=== PATIENT | female | born 1935 | race Hispanic/Latino ===

== ENCOUNTER 2020-01-30 17:25 | Inpatient (IN) | payer MEDICARE ==
[~2020-01-30] VITALS: Ht 144.8 cm; Wt 53.2 kg
[~2020-01-30 17:25] MED LIST: ALEN70TA10 PO; ALPR0.255 PO; AMOX-426 PO; ASPI-555 PO; ATOR20TA65 PO; CALC-909 PO; CHOL200074 PO; DICL2100G TP; DONE5TAB26 PO; LEVO25TA54 PO; METF-444 PO; PARO-37 PO; PREG75 GT; TYL3 PO; [UNRECOGNIZED DRUG - OTHER] PO
[2020-01-30] MEDS ORDERED: ONDANSETRON HCL 4 MG/2 ML VIAL ONE (19:22)
[2020-01-30] MEDS ORDERED: MORPHINE SULFATE 2 MG/ML 1ML SYG ONE (19:23)
[2020-01-30 19:38] LABS: BASOPHILS % (AUTO) 0.5 % (0.0-5.0); EOSINOPHILS % (AUTO) 0.7 % (0.0-8.0); HEMATOCRIT 29.8 % (36-48); LYMPHOCYTES % (AUTO) 15.1 % (21.0-51.0); MEAN CORPUSCULAR HGB CONC 32.2 g/dL (32.0-36.0); NEUTROPHILS % (AUTO) 78.3 % (40.0-77.0); PLATELET COUNT (AUTO) 140 K/uL (130-400); RED BLOOD CELL COUNT(AUTO) 3.31 MIL/uL (4.00-5.50); RED CELL DISTRIBUTION WIDTH 14.2 % (11.0-15.5)
[2020-01-30 19:50] LABS: CREATININE 1.3 mg/dL (0.5-1.5); INR 1.13 (0.85-1.15); PARTIAL THROMBOPLASTIN TIME 26.8 SEC (26.3-35.5); POTASSIUM 5.2 mmol/L (3.5-5.1); PROTHROMBIN TIME 11.8 SEC (9.6-11.6)
[2020-01-30 19:52] LABS: ALBUMIN 3.6 g/dL (3.5-5.0); BILIRUBIN,TOTAL 0.4 mg/dL (0.2-1.0); TOTAL PROTEIN, SERUM 6.8 g/dL (6.0-8.3)
[2020-01-30] MEDS ORDERED: MORPHINE SULFATE 4 MG/1ML SYG ONE (21:54)
[2020-01-30] MEDS: DEXTROSE 5 % AND 0.9 % NACL 1,000 ML IV SCH (23:15)
[2020-01-30] MEDS ORDERED: ONDANSETRON HCL 4 MG/2 ML VIAL IV PRN (23:15)
[2020-01-30] MEDS: CEFAZOLIN SODIUM 1 GM VIAL IVP SCH (23:15)
[2020-01-30] MEDS ORDERED: GLUCAGON 1MG KIT 1 MG ML IM PRN (23:45)
[2020-01-30] MEDS ORDERED: DEXTROSE 50%-WATER 50 ML DISP.SYRIN IV PRN (23:45)
[2020-01-31 00:12] LABS: HEMOGLOBIN A1C 5.8 % (4.0-6.0)
[2020-01-31] MEDS ORDERED: CEFAZOLIN SODIUM 1 GM VIAL ONE (00:13)
[2020-01-31] MEDS ORDERED: DEXTROSE 5 % AND 0.9 % NACL 1,000 ML IV ONE (00:13)
[2020-01-31 02:40] VITALS: BP 108/50
--- NOTE | 2020-01-31 02:43 | NUR ---
ADMISSION PT ADMITTED FROM ER INTO ROOM 418. AWAKE, ALERT AND VERBALLY RESPONSIVE. C/O DISCOMFORT TO RIGHT UPPER AND LOWER EXTREMITY, SLING WITH SPLINT TO RIGHT UPPER EXTREMITY. PT AND FAMILY MEMBER AT BEDSIDE ORIENTED TO ROOM, CALL ELLIOTT WITHIN REACH, BED IN LOWEST POSITION. Addendum: 01/31/20 at 0248 by JOSEE MANCILLA RN Amended: Links added.
[2020-01-31] MEDS ORDERED: LISI10TA7 PO (03:51)
[2020-01-31] MEDS ORDERED: NITR0.4T50 SL (03:51)
[2020-01-31] MEDS ORDERED: MEMA10TA55 PO (03:51)
[2020-01-31] MEDS ORDERED: METF-444 PO (03:51)
[2020-01-31] MEDS ORDERED: METO25TA6 PO (03:51)
[2020-01-31] MEDS: INSULIN HUMULIN R 100 UNIT/ML 3ML SQ SCH ×4 (05:37→23:46)
[2020-01-31 05:58] LABS: ALBUMIN 3.1 g/dL (3.5-5.0); BILIRUBIN,TOTAL 0.3 mg/dL (0.2-1.0); CREATININE 1.8 mg/dL (0.5-1.5); POTASSIUM 5.3 mmol/L (3.5-5.1); TOTAL PROTEIN, SERUM 5.8 g/dL (6.0-8.3)
[2020-01-31 06:29] LABS: BASOPHILS % (AUTO) 0.3 % (0.0-5.0); EOSINOPHILS % (AUTO) 0.4 % (0.0-8.0); HEMATOCRIT 23.2 % (36-48); LYMPHOCYTES % (AUTO) 26.2 % (21.0-51.0); MEAN CORPUSCULAR HEMOGLOBIN 28.6 pg (27.0-33.0); MEAN CORPUSCULAR HGB CONC 31.5 g/dL (32.0-36.0); MONOCYTES % (AUTO) 8.1 % (3.0-13.0); NEUTROPHILS % (AUTO) 64.6 % (40.0-77.0); PLATELET COUNT (AUTO) 106 K/uL (130-400); RED BLOOD CELL COUNT(AUTO) 2.55 MIL/uL (4.00-5.50); RED CELL DISTRIBUTION WIDTH 14.5 % (11.0-15.5); WHITE BLOOD COUNT (AUTO) 7.3 K/uL (4.8-10.8)
[2020-01-31 07:05] LABS: APPEARANCE,URINE Cloudy (CLEAR); BILIRUBIN,URINE Small (NEGATIVE); COLOR,URINE Dark Yellow (YELLOW); GLUCOSE, URINE (UA) Negative (NEGATIVE); KETONES,URINE Trace mg/dL (NEGATIVE); LEUKOCYTE ESTERASE ,URINE Trace (NEGATIVE); NITRATE,URINE Negative (NEGATIVE); OCCULT BLOOD,URINE Negative (NEGATIVE); PH,URINE 5.5 (5.0-8.0); PROTEIN,URINE Trace mg/dL (NEGATIVE)
--- NOTE | 2020-01-31 07:37 | NUR ---
ROUNDING DR. ARMENTA IN PT ROOM. ASSESSED PT AND PT CHART, UPDATED PT AND FAMILY MEMBERS AT BEDSIDE OF PLAN OF CARE, ALL OF FAMILY QUESTIONS WERE ANSWERED. STATED PT NEEDS SURGICAL INTERVENTION TO RIGHT UPPER EXTREMITY BUT NEEDS MEDICAL CLEARANCE FIRST. ONCE MEDICAL CLEARANCE IS OBTAINED PLEASE INFORM DR. ARMENTA AND WILL GIVE ORDERS FOR SURGERY. Addendum: 01/31/20 at 0741 by JOSEE MANCILLA RN Amended: Links added.
[2020-01-31 08:00] VITALS: BP 122/36
--- NOTE | 2020-01-31 08:15 | NUR ---
Notified Buddy Pierce NP of lab levels. Buddy Pierce to order repeat CBC for today to verify levels.
[2020-01-31 08:20] LABS: BACTERIA,URINE Rare /HPF (None Seen); MUCUS,URINE Rare LPF (None Seen); RBC,URINE 0-1 /HPF (0-1); SQUAMOUS EPITHELIAL CELL,UR Rare /HPF (0-2); WBC,URINE 0-1 /HPF (0-1)
[2020-01-31 08:56] LABS: BASOPHILS % (AUTO) 0.7 % (0.0-5.0); EOSINOPHILS % (AUTO) 0.8 % (0.0-8.0); HEMATOCRIT 23.2 % (36-48); LYMPHOCYTES % (AUTO) 31.1 % (21.0-51.0); MEAN CORPUSCULAR HEMOGLOBIN 28.2 pg (27.0-33.0); MEAN CORPUSCULAR HGB CONC 30.6 g/dL (32.0-36.0); MEAN CORPUSCULAR VOLUME 92.1 fL (79-99); MONOCYTES % (AUTO) 7.8 % (3.0-13.0); NEUTROPHILS % (AUTO) 59.3 % (40.0-77.0); PLATELET COUNT (AUTO) 116 K/uL (130-400); RED BLOOD CELL COUNT(AUTO) 2.52 MIL/uL (4.00-5.50); RED CELL DISTRIBUTION WIDTH 14.5 % (11.0-15.5); WHITE BLOOD COUNT (AUTO) 7.1 K/uL (4.8-10.8)
[2020-01-31 09:08] LABS: CREATININE 1.6 mg/dL (0.5-1.5); POTASSIUM 5.4 mmol/L (3.5-5.1)
[2020-01-31] MEDS: FAMOTIDINE/PF 20 MG/2 ML VIAL IV SCH ×2 (09:45→20:21)
--- NOTE | 2020-01-31 10:40 | NUR ---
Nutrition Intervention: Nutrition consult due to trigger. Pt. admitted with Dx of Right Humerus/Femoral fracture. 75gm CCD Clear Liquid diet ordered to begin at lunch time. Pt. NPO during visit. Pt. in the bathroom during visit- spoke with pt's daughter. Daughter reports pt. needs soft/chopped foods when diet advanced. Labs reviewed(Alb 3.1, BG 146, BUN 27, Creat 1.6, GFR 33). Spoke with daughter regarding supplementation with Glucerna when diet advanced and daughter agreed to let pt. try. LBM: 01/30/2020. SR-14, elastic. Pt. with non-pitting edema to RUE. Recommendations: 1) When medically feasible, rec. advance diet as tolerated to 60gm CCD [facility] Soft Finely Chopped diet and [place] Glucerna QD with B'fast meal. 2) Continue to monitor pt's nutritional status and diet advancement. 3) Consult RD as nutrition concerns arise. Addendum: 01/31/20 at [address] Amended: Links added.
[2020-01-31] MEDS: CEFAZOLIN SODIUM 1 GM VIAL IVP SCH ×2 (11:20→23:46)
[2020-01-31 11:36] VITALS: BP 116/50
[2020-01-31] MEDS ORDERED: SODIUM POLYSTYRENE SULFONATE 15 GM/60 ML ML PO SCH (11:45)
[2020-01-31] MEDS ORDERED: SODIUM CHLORIDE 0.9% 250 ML IV ONE (14:38)
[2020-01-31] MEDS: METOPROLOL TARTRATE 25 MG TAB PO SCH (14:53)
--- NOTE | 2020-01-31 15:18 | NUR ---
Patient and family educated on transfusion reactions and to report any symptoms during transfusion. Patient and family verbalized understanding. Unit of PRBC verified with Bibi Yee RN. Transfusion began.
[2020-01-31 16:00] VITALS: BP 120/50
--- NOTE | 2020-01-31 16:30 | NUR ---
CM NOTES MET WITH PATIENT AND GRANDPAULINO SNYDER AT BEDSIDE FOR DISCHARGE PLANNING. PT IS PLEASANTLY CONFUSED BUT ANSWERS MOST QUESTIONS COHERENTLY. LIVES ALONE, GRANDSON AND DAUGHTER ELGIN PRIMARY CAREGIVER LIVE NEXT DOOR. PT STATES IS INDEPENDENT AND AMBULATORY WITHOUT ASSISTANCE, BUT GRANDSON STATES PATIENT HAS CANE AND ROLLING WALKER AND DOES USE MOST OF THE TIME , STATES SHE IS UNSTEADY WITH MOBILITY ASSISTANCE- S/P FALL WITH LEG PAIN AND SHOULDER INJURY. PROVIDER 4 HRS DAILY, HOME SAFE AND ACCESSIBLE; ADVISED GRANDSON THAT A SNF MIGHT BE RECOMMENDED AFTER PT EVAL- WILL FOLLOW UP FOR POSSIBLE REFERRAL. Addendum: 02/01/20 at 1242 by MARI POSADA RN CM Amended: Links added.
[2020-01-31] MEDS: MORPHINE SULFATE 2 MG/ML 1ML SYG IVP PRN ×2 (16:31→23:57)
[2020-01-31] MEDS ORDERED: SODIUM POLYSTYRENE SULFONATE 15 GM/60 ML ML ONE ×2 (17:21→17:24)
[2020-01-31 19:00] VITALS: BP 96/44
--- NOTE | 2020-01-31 19:38 | NUR ---
Notified Dr. Gutierrez of cardiac and medical clearance as reported by Buddy Miramontes NP for Dr. Alfaro and Buddy Pierce NP for hospitalist group. Notified Dr. Gutierrez of pending PRBC transfusion for hgb 7.1 and kayexalate for K+ of 5.4 with patient's family report of history of occasional anemia and hyperkalemia.
[2020-01-31 19:47] LABS: HEMATOCRIT 25.8 % (36-48)
[2020-01-31 19:52] LABS: CREATININE 1.5 mg/dL (0.5-1.5); POTASSIUM 5.2 mmol/L (3.5-5.1)
[2020-01-31] MEDS: DEXTROSE 5 % AND 0.9 % NACL 1,000 ML IV SCH (20:21)
[2020-02-01] VITALS (26 sets, daily range): BP systolic 111–155; BP diastolic 37–94
[2020-02-01] MEDS: INSULIN HUMULIN R 100 UNIT/ML 3ML SQ SCH ×4 (05:08→23:37)
[2020-02-01 05:52] LABS: BASOPHILS % (AUTO) 0.3 % (0.0-5.0); EOSINOPHILS % (AUTO) 0.7 % (0.0-8.0); HEMATOCRIT 23.7 % (36-48); LYMPHOCYTES % (AUTO) 26.1 % (21.0-51.0); MEAN CORPUSCULAR HEMOGLOBIN 27.8 pg (27.0-33.0); MEAN CORPUSCULAR HGB CONC 31.2 g/dL (32.0-36.0); MEAN CORPUSCULAR VOLUME 89.1 fL (79-99); MONOCYTES % (AUTO) 8.3 % (3.0-13.0); NEUTROPHILS % (AUTO) 64.2 % (40.0-77.0); PLATELET COUNT (AUTO) 82 K/uL (130-400); RED BLOOD CELL COUNT(AUTO) 2.66 MIL/uL (4.00-5.50); RED CELL DISTRIBUTION WIDTH 15.6 % (11.0-15.5)
[2020-02-01 06:17] LABS: ALBUMIN 2.8 g/dL (3.5-5.0); BILIRUBIN,TOTAL 0.5 mg/dL (0.2-1.0); CREATININE 1.3 mg/dL (0.5-1.5); TOTAL PROTEIN, SERUM 5.4 g/dL (6.0-8.3)
[2020-02-01] MEDS: FAMOTIDINE/PF 20 MG/2 ML VIAL IV SCH ×2 (10:00→22:05)
[2020-02-01] MEDS: METOPROLOL TARTRATE 25 MG TAB PO SCH (10:01)
[2020-02-01] MEDS ORDERED: SODIUM CHLORIDE 0.9% 1000ML 1,000 ML IV ONE (10:42)
[2020-02-01] MEDS ORDERED: NITROGLYCERIN 0.4 MG SL TAB SL PRN (10:45)
[2020-02-01] MEDS: CEFAZOLIN SODIUM 1 GM VIAL IVP SCH ×3 (10:50→22:05)
[2020-02-01] MEDS ORDERED: ROPIVACAINE 0.5% 5MG/ML 30ML IJ ONE (11:15)
[2020-02-01] MEDS ORDERED: SUCCINYLCHOLINE 200MG/10ML SYR ONE (11:17)
[2020-02-01] MEDS ORDERED: LIDOCAINE PF 2% 5ML ABBOJECT ONE (11:17)
[2020-02-01] MEDS ORDERED: GLYCOPYRROLATE 1 MG/5 ML SYRINGE ONE (11:19)
[2020-02-01] MEDS ORDERED: DEXAMETHASONE SOD PHOSPHATE 10MG/ML 1ML VIAL ONE (11:19)
[2020-02-01] MEDS ORDERED: MIDAZOLAM HCL 1 MG/ML 2ML VIAL ONE (11:19)
[2020-02-01] MEDS ORDERED: ROCURONIUM 10MG/1ML SYR 10 MG/ML ML ONE (11:19)
[2020-02-01] MEDS ORDERED: NEOSTIGMINE 5MG/5ML SYR IV ONE (11:19)
[2020-02-01] MEDS ORDERED: ONDANSETRON HCL 4 MG/2 ML VIAL ONE (11:19)
[2020-02-01] MEDS ORDERED: PROPOFOL 10 MG/ML 20ML VIAL IV ONE (11:19)
[2020-02-01] MEDS ORDERED: FENTANYL CITRATE PF 50 MCG/1 ML 2ML VIAL ONE (11:20)
[2020-02-01] MEDS ORDERED: EPHEDRINE SULFATE 50 MG/ML AMPULE ONE (11:41)
[2020-02-01] MEDS: LISINOPRIL 10 MG TABLET PO SCH (12:00)
[2020-02-01] MEDS ORDERED: PHENYLEPHRINE HCL 10 MG/ML 1ML VIAL IV ONE (13:31)
[2020-02-01 14:13] LABS: HEMATOCRIT 21.5 % (36-48)
--- NOTE | 2020-02-01 14:42 | NUR ---
SPOKE TO DAUGHTER ELGIN ALBRECHT DC PLAN- STATED THAT THEIR PREFERENCE IS FOR PT TO GO HOME AND HAVE MORE FAMILY SURVEILLANCE/CARE. OPEN TO DISCUSSION OF POSS SNF PLACEMENT AFTER PT RECOMMENDATION IN AM - IF PTX STATES IS PREFERABLE WILL FOLLOW. Addendum: 02/01/20 at 1445 by MARI POSADA RN CM Amended: Links added.
[2020-02-01] MEDS: DEXTROSE 5 % AND 0.9 % NACL 1,000 ML IV SCH (15:15)
[2020-02-01 17:47] LABS: HEMATOCRIT 27.9 % (36-48)
[2020-02-01] MEDS: MORPHINE SULFATE 2 MG/ML 1ML SYG IVP PRN (22:03)
[2020-02-01] MEDS: PREGABALIN 75 MG CAPSULE GT SCH (22:05)
[2020-02-01] MEDS: ATORVASTATIN CALCIUM 20 MG TABLET PO SCH (22:05)
[2020-02-01] MEDS: MEMANTINE HCL 5 MG TABLET PO SCH (22:05)
[2020-02-01] MEDS: DONEPEZIL HCL 5 MG TAB PO SCH (22:05)
[2020-02-02] MEDS: DEXTROSE 5 % AND 0.9 % NACL 1,000 ML IV SCH (02:37)
[2020-02-02 03:25] VITALS: BP 143/56
[2020-02-02] MEDS: INSULIN HUMULIN R 100 UNIT/ML 3ML SQ SCH ×4 (06:04→21:36)
[2020-02-02] MEDS: LEVOTHYROXINE 25 MCG TABLET PO SCH (06:06)
[2020-02-02] MEDS ORDERED: CEFAZOLIN SODIUM 1 GM VIAL ONE (06:10)
[2020-02-02 06:43] LABS: MEAN CORPUSCULAR HEMOGLOBIN 28.4 pg (27.0-33.0); MEAN CORPUSCULAR HGB CONC 32.1 g/dL (32.0-36.0); MEAN CORPUSCULAR VOLUME 88.6 fL (79-99); PLATELET COUNT (AUTO) 75 K/uL (130-400); RED BLOOD CELL COUNT(AUTO) 2.71 MIL/uL (4.00-5.50); RED CELL DISTRIBUTION WIDTH 14.8 % (11.0-15.5); WHITE BLOOD COUNT (AUTO) 7.9 K/uL (4.8-10.8)
[2020-02-02 07:04] LABS: ALBUMIN 2.4 g/dL (3.5-5.0); BILIRUBIN,TOTAL 0.4 mg/dL (0.2-1.0); POTASSIUM 3.8 mmol/L (3.5-5.1); TOTAL PROTEIN, SERUM 5.1 g/dL (6.0-8.3)
[2020-02-02 08:19] VITALS: BP 130/48
[2020-02-02 08:48] LABS: BAND NEUTROPHILS % (MANUAL) 2 % (0-2); LYMPHOCYTES % (MANUAL) 11 % (22-44); SEGMENTED NEUTROPHILS % 87 % (40-70)
[2020-02-02 08:49] LABS: PLATELET MORPHOLOGY COMMENT DECREASED
[2020-02-02] MEDS ORDERED: METOPROLOL TARTRATE 25 MG TAB PO SCH (09:00)
[2020-02-02] MEDS: MEMANTINE HCL 5 MG TABLET PO SCH ×2 (10:03→21:25)
[2020-02-02] MEDS: FAMOTIDINE/PF 20 MG/2 ML VIAL IV SCH (10:03)
[2020-02-02] MEDS: PREGABALIN 75 MG CAPSULE GT SCH ×2 (10:04→21:26)
[2020-02-02] MEDS: METOPROLOL TARTRATE 25 MG TAB PO SCH (10:04)
[2020-02-02] MEDS: PAROXETINE HCL 20 MG TABLET PO SCH (10:04)
[2020-02-02] MEDS: CALCIUM 600 + VITAMIN D 400 TABLET PO SCH (10:04)
[2020-02-02] MEDS: ACETAMINOPHEN-CODEINE 300/30MG TAB PO PRN (10:13)
--- NOTE | 2020-02-02 11:02 | NUR ---
Nutrition Follow-up: Pt. s/P ORIF right proximal humerus(02/01/2020). Pt. on Heart Healthy diet with good p.o. this morning, as per daughter. Daughter states pt. needs softer/chopped foods. Labs reviewed(Alb 2.4, BG 198). LBM: 01/31/2020. Recommendations: 1) Rec. 60gm CCD Heart Healthy [facility] Soft Finely Chopped diet. 2) Alb 2.4, rec. [place] Glucerna QD with lunch meal. 3) Continue to monitor pt's nutritional status. 4) Consult RD as nutrition concerns arise. Addendum: 02/02/20 at [address] Amended: Links added.
[2020-02-02 11:25] VITALS: BP 136/48
[2020-02-02] MEDS: LISINOPRIL 10 MG TABLET PO SCH (11:55)
[2020-02-02] MEDS ORDERED: FERROUS SULFATE 325 MG TABLET.DR PO SCH (15:00)
[2020-02-02 16:35] VITALS: BP 129/47
[2020-02-02 18:14] VITALS: BP 149/61
[2020-02-02] MEDS: ATORVASTATIN CALCIUM 20 MG TABLET PO SCH (21:25)
[2020-02-02] MEDS: DONEPEZIL HCL 5 MG TAB PO SCH (21:25)
[2020-02-02] MEDS: FERROUS SULFATE 325 MG TABLET.DR PO SCH (21:25)
[2020-02-03] VITALS (7 sets, daily range): BP systolic 131–156; BP diastolic 50–69
[2020-02-03 05:31] LABS: BASOPHILS % (AUTO) 0.3 % (0.0-5.0); EOSINOPHILS % (AUTO) 0.4 % (0.0-8.0); HEMATOCRIT 21.7 % (36-48); LYMPHOCYTES % (AUTO) 16.3 % (21.0-51.0); MEAN CORPUSCULAR HEMOGLOBIN 28.6 pg (27.0-33.0); MEAN CORPUSCULAR HGB CONC 32.7 g/dL (32.0-36.0); MEAN CORPUSCULAR VOLUME 87.5 fL (79-99); MONOCYTES % (AUTO) 8.4 % (3.0-13.0); NEUTROPHILS % (AUTO) 73.4 % (40.0-77.0); PLATELET COUNT (AUTO) 82 K/uL (130-400); RED BLOOD CELL COUNT(AUTO) 2.48 MIL/uL (4.00-5.50); RED CELL DISTRIBUTION WIDTH 14.6 % (11.0-15.5); WHITE BLOOD COUNT (AUTO) 7.7 K/uL (4.8-10.8)
[2020-02-03 05:39] LABS: % IRON SATURATION 4.6 % (22-44)
[2020-02-03 05:55] LABS: ALBUMIN 2.3 g/dL (3.5-5.0); BILIRUBIN,TOTAL 0.6 mg/dL (0.2-1.0); POTASSIUM 3.5 mmol/L (3.5-5.1); TOTAL PROTEIN, SERUM 5.3 g/dL (6.0-8.3)
[2020-02-03] MEDS: INSULIN HUMULIN R 100 UNIT/ML 3ML SQ SCH ×4 (06:20→20:29)
[2020-02-03] MEDS: LEVOTHYROXINE 25 MCG TABLET PO SCH (06:23)
[2020-02-03] MEDS: PREGABALIN 75 MG CAPSULE GT SCH ×2 (09:54→19:50)
[2020-02-03] MEDS: CALCIUM 600 + VITAMIN D 400 TABLET PO SCH (09:54)
[2020-02-03] MEDS: FERROUS SULFATE 325 MG TABLET.DR PO SCH ×2 (09:55→19:51)
[2020-02-03] MEDS: METOPROLOL TARTRATE 25 MG TAB PO SCH (09:55)
[2020-02-03] MEDS: MEMANTINE HCL 5 MG TABLET PO SCH ×2 (09:55→19:51)
[2020-02-03] MEDS: PAROXETINE HCL 20 MG TABLET PO SCH (09:55)
[2020-02-03] MEDS ORDERED: IRON SUCROSE COMPLEX 100 MG in SODIUM CHLORIDE 0.9% 50 ML IV SCH (11:00)
[2020-02-03] MEDS ORDERED: POTASSIUM CHLORIDE 10% ELIXIR 20 MEQ/15 ML UDCUP PO PRN (11:00)
[2020-02-03] MEDS ORDERED: LIDOCAINE HCL-MPF 1% 2ML VIAL IV PRN (11:00)
[2020-02-03] MEDS ORDERED: POTASSIUM CHLORIDE 20MEQ/100ML 100 ML IV PRN (11:00)
[2020-02-03] MEDS ORDERED: COMPOUND IV MISC 1 EACH IVSOLN MISC PRN (11:15)
[2020-02-03] MEDS: LISINOPRIL 10 MG TABLET PO SCH (11:49)
[2020-02-03] MEDS: DONEPEZIL HCL 5 MG TAB PO SCH (19:51)
[2020-02-03] MEDS: ATORVASTATIN CALCIUM 20 MG TABLET PO SCH (19:51)
[2020-02-03] MEDS: POTASSIUM CHLORIDE 20 MEQ ERTAB PO PRN ×2 (19:52→23:30)
[2020-02-03] MEDS: ACETAMINOPHEN-CODEINE 300/30MG TAB PO PRN (23:32)
[2020-02-04 04:14] VITALS: BP 113/47
[2020-02-04] MEDS: LEVOTHYROXINE 25 MCG TABLET PO SCH (05:27)
[2020-02-04] MEDS: INSULIN HUMULIN R 100 UNIT/ML 3ML SQ SCH ×2 (05:29→12:01)
[2020-02-04 05:58] LABS: BASOPHILS % (AUTO) 0.3 % (0.0-5.0); EOSINOPHILS % (AUTO) 2.3 % (0.0-8.0); HEMATOCRIT 22.7 % (36-48); LYMPHOCYTES % (AUTO) 26.1 % (21.0-51.0); MEAN CORPUSCULAR HEMOGLOBIN 28.8 pg (27.0-33.0); MEAN CORPUSCULAR HGB CONC 31.7 g/dL (32.0-36.0); MEAN CORPUSCULAR VOLUME 90.8 fL (79-99); MONOCYTES % (AUTO) 7.5 % (3.0-13.0); NEUTROPHILS % (AUTO) 63.1 % (40.0-77.0); PLATELET COUNT (AUTO) 102 K/uL (130-400); RED CELL DISTRIBUTION WIDTH 14.9 % (11.0-15.5)
[2020-02-04 06:29] LABS: CREATININE 0.9 mg/dL (0.5-1.5); POTASSIUM 4.1 mmol/L (3.5-5.1)
[2020-02-04 07:30] VITALS: BP 122/53
[2020-02-04] MEDS: MEMANTINE HCL 5 MG TABLET PO SCH (08:28)
[2020-02-04] MEDS: FERROUS SULFATE 325 MG TABLET.DR PO SCH (08:28)
[2020-02-04] MEDS: PAROXETINE HCL 20 MG TABLET PO SCH (08:28)
[2020-02-04] MEDS: PREGABALIN 75 MG CAPSULE GT SCH (08:28)
[2020-02-04] MEDS: METOPROLOL TARTRATE 25 MG TAB PO SCH (08:29)
[2020-02-04] MEDS: CALCIUM 600 + VITAMIN D 400 TABLET PO SCH (08:29)
[2020-02-04] MEDS: ACETAMINOPHEN-CODEINE 300/30MG TAB PO PRN (09:09)
[2020-02-04 11:00] VITALS: BP 145/58
[2020-02-04] MEDS: LISINOPRIL 10 MG TABLET PO SCH (12:02)
--- NOTE | 2020-02-04 13:52 | NUR ---
surgical site incision to right humerous dressing changed. site is dry and intact with no signs of infection. 22 kylie to area. family and patient educated on wound care and follow up appointments with PCP and family stated the PCP is going to ask for their current home health to do wound care. dressing change per family request, painted with iodine and covered with 4x4 and clear tape. tolerated well. patient is able to move arm and fingers with minimal difficulty.
== END 2020-02-04 14:15 | disposition home or self-care (01) | DRG 493 ==
LOC: EDH 17:25 → EDHIP 23:06 → 4CH 01-31 01:34
PROVIDERS: ADMIT Internal Medicine; ATTEND Internal Medicine
PROC: 30233N1 Transfusion of Nonautologous Red Blood Cells into Peripheral Vein, Percutaneous Approach (ICD-10-PCS; 2020-01-30)
PROC: 0PSC04Z Reposition Right Humeral Head with Internal Fixation Device, Open Approach (ICD-10-PCS; principal; 2020-02-01 12:30)
DX: S42.201A Unspecified fracture of upper end of right humerus, initial encounter for closed fracture (principal); D62 Acute posthemorrhagic anemia; F32.9 Major depressive disorder, single episode, unspecified; F41.9 Anxiety disorder, unspecified; D64.9 Anemia, unspecified; E03.9 Hypothyroidism, unspecified; E11.22 Type 2 diabetes mellitus with diabetic chronic kidney disease; E78.5 Hyperlipidemia, unspecified; E87.5 Hyperkalemia; F03.90 Unspecified dementia, unspecified severity, without behavioral disturbance, psychotic disturbance, mood disturbance, and anxiety; I12.9 Hypertensive chronic kidney disease with stage 1 through stage 4 chronic kidney disease, or unspecified chronic kidney disease; I25.10 Atherosclerotic heart disease of native coronary artery without angina pectoris; I45.10 Unspecified right bundle-branch block; M81.0 Age-related osteoporosis without current pathological fracture; N18.3 Chronic kidney disease, stage 3 (moderate); S80.01XA Contusion of right knee, initial encounter; W01.0XXA Fall on same level from slipping, tripping and stumbling without subsequent striking against object, initial encounter; Y93.01 Activity, walking, marching and hiking; Y92.89 Other specified places as the place of occurrence of the external cause; Y99.8 Other external cause status; Z90.49 Acquired absence of other specified parts of digestive tract; Z83.3 Family history of diabetes mellitus; Z82.5 Family history of asthma and other chronic lower respiratory diseases; Z82.49 Family history of ischemic heart disease and other diseases of the circulatory system; Z82.3 Family history of stroke; Z82.0 Family history of epilepsy and other diseases of the nervous system; Z81.8 Family history of other mental and behavioral disorders
CPT/HCPCS: 36415; 36430; 70450; 71045; 73030; 73060; 73200; 73502; 80048; 80053; 81001; 82270; 82948; 83036; 83540; 83550; 84484; 85014; 85018; 85025; 85610; 85730; 86850; 86900; 86901; 86922; 93005; 97039; G0378; J0330; J0690; J1100; J1756; J1815; J2001; J2250; J2270; J2370; J2405; J2704; J2710; J2795; J3010; J3490; J7030; J7042; P9016

== ENCOUNTER 2020-10-19 17:26 | Observation (INO) | payer MEDICARE ==
[~2020-10-19] VITALS: Ht 147.3 cm; Wt 50.5 kg
[~2020-10-19 17:26] MED LIST changes: -ALEN70TA10 PO; +ALEN70TA69 PO; -AMOX-426 PO; -ASPI-555 PO; -CHOL200074 PO; -DICL2100G TP; +LISI10TA7 PO; +MEMA10TA55 PO; +METO25TA6 PO; +NITR0.4T50 SL; -[UNRECOGNIZED DRUG - OTHER] PO
[2020-10-19 17:53] LABS: BASOPHILS % (AUTO) 0.8 % (0.0-5.0); EOSINOPHILS % (AUTO) 1.2 % (0.0-8.0); HEMATOCRIT 32.7 % (36-48); LYMPHOCYTES % (AUTO) 34.3 % (21.0-51.0); MEAN CORPUSCULAR HEMOGLOBIN 30.6 pg (27.0-33.0); MEAN CORPUSCULAR HGB CONC 33.6 g/dL (32.0-36.0); MEAN CORPUSCULAR VOLUME 91.1 fL (79-99); MONOCYTES % (AUTO) 6.8 % (3.0-13.0); NEUTROPHILS % (AUTO) 56.6 % (40.0-77.0); PLATELET COUNT (AUTO) 136 K/uL (130-400); RED BLOOD CELL COUNT(AUTO) 3.59 MIL/uL (4.00-5.50); RED CELL DISTRIBUTION WIDTH 12.3 % (11.0-15.5); WHITE BLOOD COUNT (AUTO) 6.6 K/uL (4.8-10.8)
[2020-10-19 18:04] LABS: CREATININE 1.3 mg/dL (0.5-1.5); POTASSIUM 4.1 mmol/L (3.5-5.1)
[2020-10-19 18:09] LABS: BILIRUBIN,TOTAL 0.5 mg/dL (0.2-1.0); TOTAL PROTEIN, SERUM 7.1 g/dL (6.0-8.3)
[2020-10-19] MEDS ORDERED: ASPIRIN 325 MG TABLET ONE (18:17)
[2020-10-19 19:45] LABS: APPEARANCE,URINE Cloudy (CLEAR); BILIRUBIN,URINE Small (NEGATIVE); COLOR,URINE Dark Yellow (YELLOW); GLUCOSE, URINE (UA) Negative (NEGATIVE); KETONES,URINE 15 mg/dL (NEGATIVE); LEUKOCYTE ESTERASE ,URINE Large (NEGATIVE); NITRATE,URINE Negative (NEGATIVE); OCCULT BLOOD,URINE Negative (NEGATIVE); PH,URINE 5.5 (5.0-8.0); PROTEIN,URINE Trace mg/dL (NEGATIVE)
[2020-10-19 19:47] LABS: INR 1.13 (0.85-1.15); PARTIAL THROMBOPLASTIN TIME 27.9 SEC (26.3-35.5); PROTHROMBIN TIME 12.1 SEC (9.6-11.6)
[2020-10-19 20:15] LABS: BACTERIA,URINE Few /HPF (None Seen); HYALINE CASTS, URINE 0-1 /LPF (0-1 /LPF); MUCUS,URINE Rare LPF (None Seen); SQUAMOUS EPITHELIAL CELL,UR Rare /HPF (0-2); TRANSITIONAL EPI CELLS,URINE Few /HPF (None Seen); WBC,URINE 26-50 /HPF (0-1)
[2020-10-19] MEDS ORDERED: GLUCAGON 1MG KIT 1 MG ML IM PRN (20:45)
[2020-10-19] MEDS ORDERED: MAG HYDROX/AL HYDROX/SIMETH ES 30 ML SUSP UDCUP PO PRN (20:45)
[2020-10-19] MEDS ORDERED: DEXTROSE 50%-WATER 50 ML DISP.SYRIN IV PRN (20:45)
[2020-10-19] MEDS ORDERED: ONDANSETRON HCL 4 MG/2 ML VIAL IV PRN (20:45)
[2020-10-19] MEDS ORDERED: LACTULOSE 20 GM/30 ML UDCUP PO PRN (20:45)
[2020-10-19] MEDS ORDERED: ACETAMINOPHEN 325 MG TAB PO PRN ×2 (20:45)
[2020-10-19] MEDS ORDERED: FAMOTIDINE 20MG TAB 20 MG TAB ONE (20:54)
[2020-10-19] MEDS: INSULIN HUMULIN R 100 UNIT/ML 3ML SQ SCH (21:00)
[2020-10-19 22:05] LABS: HEMOGLOBIN A1C 5.6 % (4.0-6.0)
[2020-10-19 23:44] VITALS: BP_SYST 170; BP_SYST 178; BP_DIAS 58; BP_DIAS 71
[2020-10-20 00:05] VITALS: BP 169/72
[2020-10-20 04:22] VITALS: BP 145/60
[2020-10-20 05:57] LABS: BASOPHILS % (AUTO) 0.9 % (0.0-5.0); HEMATOCRIT 32.9 % (36-48); LYMPHOCYTES % (AUTO) 36.9 % (21.0-51.0); MEAN CORPUSCULAR HEMOGLOBIN 30.1 pg (27.0-33.0); MEAN CORPUSCULAR HGB CONC 32.5 g/dL (32.0-36.0); MEAN CORPUSCULAR VOLUME 92.4 fL (79-99); MONOCYTES % (AUTO) 8.3 % (3.0-13.0); NEUTROPHILS % (AUTO) 49.4 % (40.0-77.0); PLATELET COUNT (AUTO) 148 K/uL (130-400); RED BLOOD CELL COUNT(AUTO) 3.56 MIL/uL (4.00-5.50); RED CELL DISTRIBUTION WIDTH 12.2 % (11.0-15.5); WHITE BLOOD COUNT (AUTO) 5.6 K/uL (4.8-10.8)
[2020-10-20 06:20] LABS: CREATININE 1.2 mg/dL (0.5-1.5); POTASSIUM 3.7 mmol/L (3.5-5.1)
[2020-10-20] MEDS: INSULIN HUMULIN R 100 UNIT/ML 3ML SQ SCH ×4 (06:33→20:38)
[2020-10-20 07:36] VITALS: BP 133/64
--- NOTE | 2020-10-20 07:44 | NUR ---
DR. DARYN TA IN ROOM SPEAKING WITH PT. RE:PLAN OF CARE.
[2020-10-20] MEDS: CEFTRIAXONE SODIUM 1 GM IVP SCH (08:14)
[2020-10-20] MEDS: LEVOTHYROXINE 25 MCG TABLET PO SCH (08:14)
[2020-10-20] MEDS: METOPROLOL TARTRATE 25 MG TAB PO SCH (08:15)
[2020-10-20] MEDS: FAMOTIDINE 20MG TAB 20 MG TAB PO SCH (08:15)
[2020-10-20] MEDS: NON-FORMULARY MEDICATION 1 EACH (Memantine HCl 10 MG) PO SCH ×2 (08:20→20:37)
[2020-10-20] MEDS: SODIUM CHLORIDE 0.9% 1000ML 1,000 ML IV SCH ×2 (08:22→21:20)
[2020-10-20 11:51] VITALS: BP 136/58
[2020-10-20] MEDS: LISINOPRIL 10 MG TABLET PO SCH (11:58)
--- NOTE | 2020-10-20 14:47 | NUR ---
CM NOTE/IA UNABLE TO MET WITH PATIENT AT BEDSIDE. IA DONE BY [place]. PER PATIENT, LIVES WITH DAUGHTER, SON AND GRANDCHILD, HAS USE OF CANE, USE OF PROVIDER DAILY 7 DAYS PER WEEK, AND FEEL SAFE TO RETURN HOME ONCE DISCHARGED FROM HOSPITAL. Addendum: 10/20/20 at 1450 by ADDIE HELM RN CM Amended: Links added.
--- NOTE | 2020-10-20 16:13 | NUR ---
Plan of care discussion Case discussed with Dr. Nishant Madrid who states patient will stay 1 more day d/t UTI and pending urine cultures. CD
[2020-10-20 16:26] VITALS: BP 154/69
[2020-10-20 20:04] VITALS: BP 137/54
[2020-10-20] MEDS ORDERED: DONEPEZIL HCL 5 MG TAB PO SCH (21:00)
[2020-10-20] MEDS ORDERED: ATORVASTATIN CALCIUM 20 MG TABLET PO SCH (21:00)
[2020-10-21] VITALS: BP 143/71
[2020-10-21 04:06] VITALS: BP 139/60
[2020-10-21 06:21] LABS: EOSINOPHILS % (AUTO) 3.1 % (0.0-8.0); HEMATOCRIT 32.9 % (36-48); LYMPHOCYTES % (AUTO) 36.9 % (21.0-51.0); MEAN CORPUSCULAR HEMOGLOBIN 30.1 pg (27.0-33.0); MEAN CORPUSCULAR HGB CONC 32.5 g/dL (32.0-36.0); MEAN CORPUSCULAR VOLUME 92.7 fL (79-99); NEUTROPHILS % (AUTO) 50.7 % (40.0-77.0); PLATELET COUNT (AUTO) 150 K/uL (130-400); RED BLOOD CELL COUNT(AUTO) 3.55 MIL/uL (4.00-5.50); RED CELL DISTRIBUTION WIDTH 12.4 % (11.0-15.5); WHITE BLOOD COUNT (AUTO) 6.1 K/uL (4.8-10.8)
[2020-10-21] MEDS: LEVOTHYROXINE 25 MCG TABLET PO SCH (07:16)
[2020-10-21] MEDS: INSULIN HUMULIN R 100 UNIT/ML 3ML SQ SCH ×3 (07:16→16:30)
[2020-10-21 07:33] VITALS: BP 135/72
[2020-10-21] MEDS: METOPROLOL TARTRATE 25 MG TAB PO SCH (08:17)
[2020-10-21] MEDS: FAMOTIDINE 20MG TAB 20 MG TAB PO SCH (08:17)
[2020-10-21] MEDS: CEFTRIAXONE SODIUM 1 GM IVP SCH (08:18)
[2020-10-21] MEDS: NON-FORMULARY MEDICATION 1 EACH (Memantine HCl 10 MG) PO SCH (08:23)
[2020-10-21 11:37] VITALS: BP 132/54
[2020-10-21] MEDS: LISINOPRIL 10 MG TABLET PO SCH (11:39)
--- NOTE | 2020-10-21 15:35 | NUR ---
HL REMOVED, CATHETER INTACT. DISCHARGE INSTRUCTIONS GIVEN, PT.'S DAUGHTER AT BEDSIDE VERBALIZED UNDERSTANDING.
--- NOTE | 2020-10-21 15:55 | NUR ---
DISCHARGED HOME VIA W/C WITH BELONGINGS ACCOMPANIED BY DELMY PACKER AND PT.'S DAUGHTER.
== END 2020-10-21 16:42 | disposition home or self-care (01) ==
LOC: EDH 17:26 → EDHIP 20:44 → 4AH 23:11
PROVIDERS: ADMIT Internal Medicine; ATTEND Internal Medicine
DX: E11.649 Type 2 diabetes mellitus with hypoglycemia without coma (principal); I10 Essential (primary) hypertension; E03.9 Hypothyroidism, unspecified; E78.5 Hyperlipidemia, unspecified; F03.90 Unspecified dementia, unspecified severity, without behavioral disturbance, psychotic disturbance, mood disturbance, and anxiety; N39.0 Urinary tract infection, site not specified; M81.0 Age-related osteoporosis without current pathological fracture; D64.9 Anemia, unspecified; F41.9 Anxiety disorder, unspecified; F32.9 Major depressive disorder, single episode, unspecified; Z90.49 Acquired absence of other specified parts of digestive tract; Z98.41 Cataract extraction status, right eye; Z98.42 Cataract extraction status, left eye; Z79.4 Long term (current) use of insulin; Z79.899 Other long term (current) drug therapy
CPT/HCPCS: 36415 ×3; 80048 ×2; 80053; 81001; 82948 ×9; 83036; 83690; 83880; 84145; 84439; 84443; 84484; 85025 ×3; 85610; 85730; 87088; 93005 ×2; 96361 ×2; 96374; 96376; 97116; 97161; 99284; G0378 ×43; G8978; G8979; G8980; G8981; G8982; G8983; J0696 ×2; J7030

== ENCOUNTER 2023-07-05 13:31 | Emergency (ER) | payer MEDICARE ==
[~2023-07-05] VITALS: Ht 144.8 cm; Wt 46.7 kg
[~2023-07-05 13:31] MED LIST changes: -ALEN70TA69 PO; +ALEN70TA80 PO; -ALPR0.255 PO; +DONE-51 PO; -DONE5TAB26 PO; +LISI10TA24 PO; -LISI10TA7 PO; -METF-444 PO; -METO25TA6 PO; -NITR0.4T50 SL; -PREG75 GT; -TYL3 PO
[2023-07-05 15:08] LABS: BASOPHILS # (AUTO) 0.05 K/uL (0.00-0.20); BASOPHILS % (AUTO) 0.5 % (0.0-5.0); EOSINOPHILS # (AUTO) 0.06 K/uL (0.00-0.70); EOSINOPHILS % (AUTO) 0.7 % (0.0-8.0); HEMATOCRIT 32.8 % (36-48); IMMATURE GRANULOCYTE ABSOLUTE 0.07 K/uL (0-1); LYMPHOCYTES % (AUTO) 10.7 % (21.0-51.0); MEAN CORPUSCULAR HEMOGLOBIN 28.7 pg (27.0-33.0); MEAN CORPUSCULAR HGB CONC 31.4 g/dL (32.0-36.0); MEAN CORPUSCULAR VOLUME 91.4 fL (79-99); MONOCYTES # (AUTO) 0.4 K/uL (0.1-1.0); MONOCYTES % (AUTO) 4.8 % (3.0-13.0); NEUTROPHILS # (AUTO) 7.6 K/uL (1.8-7.7); NEUTROPHILS % (AUTO) 82.5 % (40.0-77.0); PLATELET COUNT (AUTO) 144 K/uL (130-400); RED BLOOD CELL COUNT(AUTO) 3.59 MIL/uL (4.00-5.50); RED CELL DISTRIBUTION WIDTH 13.4 % (11.0-15.5); WHITE BLOOD COUNT (AUTO) 9.2 K/uL (4.8-10.8)
[2023-07-05 15:14] LABS: CREATININE 1.5 mg/dL (0.5-1.5); POTASSIUM 5.3 mmol/L (3.5-5.1)
[2023-07-05 15:15] LABS: APPEARANCE,URINE CLEAR (CLEAR); BILIRUBIN,URINE NEGATIVE (NEGATIVE); COLOR,URINE YELLOW (YELLOW); GLUCOSE, URINE (UA) NEGATIVE (NEGATIVE); KETONES,URINE NEGATIVE (NEGATIVE); LEUKOCYTE ESTERASE ,URINE NEGATIVE Leu/uL (NEGATIVE); NITRATE,URINE NEGATIVE (NEGATIVE); OCCULT BLOOD,URINE NEGATIVE (NEGATIVE); PH,URINE 5.5 (5.0-8.0); PROTEIN,URINE 10 mg/dL (NEGATIVE); UROBILINOGEN,URINE 0.2 mg/dL (0.2-1.0)
[2023-07-05 15:16] LABS: ADD UA MICROSCOPIC YES
[2023-07-05 15:17] LABS: BACTERIA,URINE FEW /HPF (None Seen); MUCUS,URINE RARE LPF (None Seen); OTHER CASTS, URINE 3 /LPF (None Seen); RBC,URINE 0-1 /HPF (0-1); SQUAMOUS EPITHELIAL CELL,UR RARE /HPF (0-2)
[2023-07-05 15:18] LABS: ALBUMIN 3.9 g/dL (3.5-5.0); BILIRUBIN,TOTAL 0.3 mg/dL (0.2-1.0)
[2023-07-05] MEDS ORDERED: ALBUTEROL 0.083% 2.5 MG/3 ML INH IH SCH (16:00)
[2023-07-05 16:24] VITALS: PULSE 56; RESP 18
[2023-07-05 17:12] VITALS: BP 116/47; PULSE 75; RESP 14; O2SAT 99
== END 2023-07-05 17:14 | disposition home or self-care (01) ==
LOC: EDH 13:31
DX: E87.6 Hypokalemia (principal); E11.9 Type 2 diabetes mellitus without complications; F03.93 Unspecified dementia, unspecified severity, with mood disturbance; I10 Essential (primary) hypertension; Z79.890 Hormone replacement therapy; Z79.899 Other long term (current) drug therapy; W18.39XA Other fall on same level, initial encounter; Y93.89 Activity, other specified; Y92.89 Other specified places as the place of occurrence of the external cause; Y99.8 Other external cause status
CPT/HCPCS: 36415; 70450; 72125; 72128; 72131; 80053; 81001; 84484; 85025; 93005; 94640

== ENCOUNTER 2023-10-05 23:08 | Observation (INO) | payer MEDICARE ==
[~2023-10-05] VITALS: Ht 152.4 cm; Wt 45.4 kg
[2023-10-05 23:50] LABS: BASOPHILS # (AUTO) 0.05 K/uL (0.00-0.20); BASOPHILS % (AUTO) 0.6 % (0.0-5.0); EOSINOPHILS # (AUTO) 0.13 K/uL (0.00-0.70); EOSINOPHILS % (AUTO) 1.7 % (0.0-8.0); HEMATOCRIT 29.5 % (36-48); IMMATURE GRANULOCYTE ABSOLUTE 0.04 K/uL (0-1); LYMPHOCYTES # (AUTO) 1.9 K/uL (1.0-4.8); LYMPHOCYTES % (AUTO) 23.7 % (21.0-51.0); MEAN CORPUSCULAR HGB CONC 31.5 g/dL (32.0-36.0); MEAN CORPUSCULAR VOLUME 91.9 fL (79-99); MONOCYTES # (AUTO) 0.6 K/uL (0.1-1.0); MONOCYTES % (AUTO) 7.6 % (3.0-13.0); NEUTROPHILS # (AUTO) 5.2 K/uL (1.8-7.7); NEUTROPHILS % (AUTO) 65.9 % (40.0-77.0); PLATELET COUNT (AUTO) 161 K/uL (130-400); RED BLOOD CELL COUNT(AUTO) 3.21 MIL/uL (4.00-5.50); WHITE BLOOD COUNT (AUTO) 7.8 K/uL (4.8-10.8)
[2023-10-06 00:02] LABS: CREATININE 1.9 mg/dL (0.5-1.5); POTASSIUM 4.1 mmol/L (3.5-5.1)
[2023-10-06 00:08] LABS: ALBUMIN 3.7 g/dL (3.5-5.0); BILIRUBIN,TOTAL 0.2 mg/dL (0.2-1.0); MAGNESIUM 2.1 mg/dL (1.80-2.40); THYROID STIMULATING HORMONE 13.42 uIU/mL (0.36-3.74); TOTAL PROTEIN, SERUM 6.8 g/dL (6.0-8.3)
[2023-10-06 00:56] LABS: APPEARANCE,URINE CLEAR (CLEAR); BILIRUBIN,URINE NEGATIVE (NEGATIVE); COLOR,URINE YELLOW (YELLOW); GLUCOSE, URINE (UA) NEGATIVE (NEGATIVE); KETONES,URINE NEGATIVE (NEGATIVE); LEUKOCYTE ESTERASE ,URINE NEGATIVE Leu/uL (NEGATIVE); NITRATE,URINE NEGATIVE (NEGATIVE); OCCULT BLOOD,URINE NEGATIVE (NEGATIVE); PROTEIN,URINE 20 mg/dL (NEGATIVE); UROBILINOGEN,URINE 0.2 mg/dL (0.2-1.0)
[2023-10-06 01:07] LABS: ADD UA MICROSCOPIC YES
[2023-10-06 01:08] LABS: MUCUS,URINE RARE LPF (None Seen); SQUAMOUS EPITHELIAL CELL,UR RARE /HPF (0-2); WBC,URINE 0-1 /HPF (0-1)
[2023-10-06] MEDS ORDERED: 0.9%NACL 1000ML 1,000 ML IV SCH (04:00)
[2023-10-06] MEDS ORDERED: ACETAMINOPHEN 325 MG TAB PO PRN ×2 (04:00)
[2023-10-06] MEDS ORDERED: ONDANSETRON 4MG INJ IV PRN (04:00)
[2023-10-06] MEDS ORDERED: MAGNESIUM 2GM PREMIX 50ML 50 ML IV PRN (04:30)
[2023-10-06] MEDS ORDERED: DEXTROSE 50%-WATER 50 ML DISP.SYRIN IV PRN (04:30)
[2023-10-06] MEDS ORDERED: POTASSIUM CHLORIDE 20MEQ/100ML 100 ML IV PRN (04:30)
[2023-10-06] MEDS ORDERED: GLUCAGON 1MG KIT 1 MG ML IM PRN (04:30)
[2023-10-06 05:22] VITALS: BP 121/74; PULSE 88; RESP 18; O2SAT 97
[2023-10-06] MEDS ORDERED: LEVOTHYROXINE 50 MCG TABLET PO SCH (06:30)
[2023-10-06] MEDS: INSULIN HUMULIN R 100 UNIT/ML 3ML SQ SCH ×2 (07:30→11:30)
[2023-10-06 07:47] LABS: BASOPHILS # (AUTO) 0.04 K/uL (0.00-0.20); BASOPHILS % (AUTO) 0.7 % (0.0-5.0); EOSINOPHILS # (AUTO) 0.13 K/uL (0.00-0.70); EOSINOPHILS % (AUTO) 2.3 % (0.0-8.0); HEMATOCRIT 31.6 % (36-48); IMMATURE GRANULOCYTE ABSOLUTE 0.03 K/uL (0-1); LYMPHOCYTES # (AUTO) 1.4 K/uL (1.0-4.8); LYMPHOCYTES % (AUTO) 24.7 % (21.0-51.0); MEAN CORPUSCULAR VOLUME 90.8 fL (79-99); MONOCYTES # (AUTO) 0.4 K/uL (0.1-1.0); MONOCYTES % (AUTO) 6.8 % (3.0-13.0); NEUTROPHILS # (AUTO) 3.6 K/uL (1.8-7.7); PLATELET COUNT (AUTO) 142 K/uL (130-400); RED BLOOD CELL COUNT(AUTO) 3.48 MIL/uL (4.00-5.50); WHITE BLOOD COUNT (AUTO) 5.6 K/uL (4.8-10.8)
[2023-10-06 07:55] LABS: HEMOGLOBIN A1C 5.9 % (4.0-6.0)
[2023-10-06 08:04] LABS: ALANINE AMINOTRANSFERASE 19 U/L (12-78); ALBUMIN 3.9 g/dL (3.5-5.0); ASPARTATE AMINOTRANSFERASE 23 U/L (10-37); BILIRUBIN,TOTAL 0.3 mg/dL (0.2-1.0); CARBON DIOXIDE 31 mmol/L (21-32); CHLORIDE 105 mmol/L (101-111); CREATININE 1.5 mg/dL (0.5-1.5); GLOMERULAR FILTR. RATE CALC 34 mL/min (>90); GLUCOSE,RANDOM 96 mg/dL (70-105); POTASSIUM 4.5 mmol/L (3.5-5.1); SODIUM SERUM 141 mmol/L (136-145); TOTAL PROTEIN, SERUM 6.7 g/dL (6.0-8.3); UREA NITROGEN, BLOOD 25 mg/dL (7-18)
[2023-10-06 08:46] LABS: AMMONIA < 10 umol/L (11-32)
[2023-10-06] MEDS ORDERED: FAMOTIDINE 20MG VIAL IV SCH (09:00)
[2023-10-06] MEDS ORDERED: AMLODIPINE 5 MG TAB PO ONE (13:30)
[2023-10-06] MEDS ORDERED: SERT-440 PO (15:24)
[2023-10-06] MEDS ORDERED: FOLI1TAB85 PO (15:25)
[2023-10-06] MEDS ORDERED: IRON1CAP3 PO (15:25)
[2023-10-07] MEDS ORDERED: LEVOTHYROXINE 25 MCG TABLET PO SCH (06:30)
[2023-10-07] MEDS ORDERED: AMLODIPINE 5 MG TAB PO SCH (09:00)
== END 2023-10-06 16:00 | disposition home or self-care (01) ==
LOC: EDH 23:08 → EDHIP 10-06 03:58
PROVIDERS: ADMIT Hospitalist; ATTEND Hospitalist
DX: N17.9 Acute kidney failure, unspecified (principal); E86.0 Dehydration; E03.9 Hypothyroidism, unspecified; I12.9 Hypertensive chronic kidney disease with stage 1 through stage 4 chronic kidney disease, or unspecified chronic kidney disease; E11.22 Type 2 diabetes mellitus with diabetic chronic kidney disease; N18.32 Chronic kidney disease, stage 3b; D63.1 Anemia in chronic kidney disease; F03.90 Unspecified dementia, unspecified severity, without behavioral disturbance, psychotic disturbance, mood disturbance, and anxiety; F41.8 Other specified anxiety disorders; R41.82 Altered mental status, unspecified; M81.0 Age-related osteoporosis without current pathological fracture; M19.90 Unspecified osteoarthritis, unspecified site; R79.89 Other specified abnormal findings of blood chemistry; E53.8 Deficiency of other specified B group vitamins; G31.9 Degenerative disease of nervous system, unspecified; Z90.49 Acquired absence of other specified parts of digestive tract; Z79.899 Other long term (current) drug therapy
CPT/HCPCS: 99285; 84443; 83735 ×2; 84484; 80053 ×2; 83690; 85025 ×2; 71045; 70450; 93005; 96374; 96361; 83036; 82140; 82948 ×2; 81001; 36415 ×2; 92610; G0378 ×12; J3490

== ENCOUNTER 2025-01-16 20:14 | Emergency (ER) | payer MEDICARE ==
[~2025-01-16] VITALS: Ht 144.8 cm; Wt 48.1 kg
[~2025-01-16 20:14] MED LIST changes: -ALEN70TA80 PO; +FOLI1TAB85 PO; +IRON1CAP3 PO; +MEMA10TA21 PO; -MEMA10TA55 PO; -PARO-37 PO; +SERT-440 PO
--- NOTE | 2025-01-16 20:41 | ERN ---
ED Note History of Present Illness Stated Complaint: LEFT SIDE PAIN, STOMACH PAIN Chief Complaint: Abdominal Pain Time Seen by MD: 20:20 Dictation: The patient is an 83-year-old female with a medical history that includes hypertension, anemia, anxiety, arthritis, dementia, chronic kidney disease stage 3, and type 2 diabetes mellitus presented to the emergency department with primary complaints of lower abdominal pain that began in the morning. The pain is primarily located in the hypogastric area and radiates to the left lumbar and iliac regions. It is described as dull in nature, with no identifiable aggravating or relieving factors. The patient consulted her primary care provider yesterday regarding this discomfort and was informed that it was likely related to constipation, attributed to her use of ferrous sulfate. She was discharged with ear drops and loratadine for allergies and upper respiratory infection. The patient has a longstanding history of anemia and has been under the care of Dr. Meléndez, taking ferrous sulfate for the past three years. According to her daughter, the patient has regular bowel movements, with the most recent occurring this morning. She reports no symptoms of nausea, vomiting, urinary frequency, urgency, or diarrhea. Allergies: Coded Allergies: No Known Drug Allergies (Unverified Allergy, Unknown, 01/16/25) Uncoded Allergies: NKDA (Allergy, Unknown, 07/26/14) Home Meds Active Scripts Nitrofurantoin/Nitrofuran Mac (Macrobid) 100 Mg Cap, 100 MG PO BID for 5 Days, #10 CAP Prov:DONNA NAIDU MD 01/16/25 Reported Medications Iron Ps Cmplx/Vit B12/FA (Ferrex 150 Forte Capsule) 150 Mg-25 Mcg-1 Mg Capsule, 1 EACH PO AM, CAP 10/06/23 Vit B Cmplx 3/FA/Vit C/Biotin (Qiana-Farhan Rx Tablet) 1 Mg-60 Mg-300 Mcg Tablet, 1 EACH PO AM, TAB 10/06/23 Sertraline HCl (Sertraline HCl) 100 Mg Tablet, 100 MG PO BID, TAB 10/06/23 Lisinopril (Lisinopril) 10 Mg Tablet, 2.5 MG PO AM, TAB 01/31/20 Memantine HCl (Memantine HCl) 10 Mg Tablet, 10 MG PO BID, TAB 01/31/20 Donepezil HCl (Donepezil HCl) 5 Mg Tab.rapdis, 10 MG PO HS, TAB 06/30/16 Atorvastatin Calcium (Atorvastatin Calcium) 20 Mg Tablet, 20 MG PO HS, TAB 06/30/16 Calcium Carbonate/Vitamin D3 (Calcium 600 + Vit D Caplet) 1 Each Tablet, 1 EACH PO DAILY, TAB 07/26/14 Levothyroxine Sodium (Levothyroxine Sodium) 25 Mcg Tablet, 50 MCG PO DAILY, TAB 07/26/14 Past Medical History Past Medical History: Anemia, Anxiety, Dementia, Depression, Diabetes-Type II, Hypertension, Renal Disese, Other Additional Past Medical Hx: ELLIOTT'S PALSY Surgical History: Cholecystectomy, Other, BTL Surgical History Other: RIGHT SHOULDER SX Review of System Dictation REVIEW OF SYSTEMS CONSTITUTIONAL: Denies fevers, chills, or night sweats. No unintentional weight loss reported. NEUROLOGICAL: Denies headache, amaurosis fugax, motor weakness, sensory deficit, vertigo/spinning sensation, gait abnormalities, or tremors. ENT: No hearing loss, otalgia, otorrhea, rhinitis, rhinorrhea, hoarseness, or sore throat. CARDIOVASCULAR: Denies any exertional angina, dyspnea on exertion, orthopnea, paroxysmal nocturnal dyspnea, palpitations, life-threatening arrhythmias, claudication. PULMONARY: Denies any shortness of breath, cough, phlegm/sputum, hemoptysis, pleuritic chest pain. SLEEP: Denies morning headaches, daytime somnolence or napping. Denies difficulty falling asleep, staying asleep, waking from sleep. Denies knowledge of snoring. GASTROINTESTINAL: Complaint of 7/10 lower abdominal pain, Denies any type of dysphagia to either liquids or solids. Denies nausea, vomiting, pyrosis, early satiety, abdominal pain, diarrhea, constipation, or changes in stool consistency or caliber. Denies coffee-ground emesis, hematemesis, hematochezia, or melanotic stools. GENITOURINARY: Denies frequency, urgency, nocturia, hematuria or incontinence (Storage/Irritative symptoms.) Low urinary stream, straining to void, urinary intermittency or hesitancy, splitting of the voiding stream, terminal dribbling. ENDOCRINOLOGIC: Denies polyuria, polydipsia, polyphagia or heat/cold intole rances. HEMATOLOGIC: Denies thrombophilia/previous clots, or coagulopathy/bleeding disorders. ONCOLOGIC: Denies personal history of malignancy. DERMATOLOGIC: Denies rashes or pruritus. PSYCHIATRIC: Denies any suicidal or homicidal ideation. Denies hallucinations. Initial Vital Sign VS Vital Signs Date Time Temp Pulse Resp B/P (MAP) Pulse Ox O2 Delivery O2 Flow Rate FiO2 01/16/25 20:31 98.4 68 18 151/59 99 Room Air 0 01/16/25 22:06 21 Physical Exam Dictation PHYSICAL EXAM GENERAL APPEARANCE: The patient is awake, alert, and oriented, in no acute cardiopulmonary distress. NEUROLOGICAL: Cranial nerves II-XII grossly intact. Motor is 5/5 in bilateral upper and lower extremities proximal to distal. No sensory deficits. HEENT: Face is symmetric. Pupils are equal and reactive. Extraocular movements are intact. NECK: Supple. No JVD. No thyromegaly. No submental, submandibular, pre- /postauricular, occipital or supraclavicular lymphadenopathy. CHEST: Normal chest expansion. No Telemetry. LUNGS: Absence of any rales, rhonchi or any wheezing. CARDIOVASCULAR: Regular. S1 and S2 normal. No appreciable rubs, murmurs or gallops. ABDOMEN: Soft, nontender, and nondistended. There is no rebound, voluntary guarding, or rigidity. : Deferred. No Ocasio. EXTREMITIES: Non-edematous and not cyanotic. No clubbing. Good capillary refill. SKIN: No skin breakdown. Results (Laboratory/Radiology) Laboratory/Radiology Laboratory Tests Test 01/16/25 20:49 01/16/25 21:45 Urine Color YELLOW (YELLOW) Urine Appearance CLEAR (CLEAR) Urine pH 6.0 (5.0-8.0) Urine Specific [place] 1.028 (1.001-1.031) Urine Protein TRACE mg/dL (NEGATIVE) H Urine Glucose (UA) NEGATIVE mg/dL (NEGATIVE) Urine Ketones 5 mg/dL (NEGATIVE) H Urine Occult Blood NEGATIVE (NEGATIVE) Urine Nitrate NEGATIVE (NEGATIVE) Urine Bilirubin NEGATIVE mg/dL (NEGATIVE) Urine Urobilinogen 0.2 mg/dL (0.2-1.0) Urine Leukocyte Esterase SMALL Reggie/uL (NEGATIVE) H White Blood Count 7.6 K/uL (4.8-10.8) Red Blood Count 3.52 MIL/uL (4.00-5.50) L Hemoglobin 11.0 g/dL (12.0-16.0) L Hematocrit 33.5 % (36-48) L Mean Corpuscular Volume 95.2 fL (79-99) Mean Corpuscular Hemoglobin 31.3 pg (27.0-33.0) Mean Corpuscular Hemoglobin Concent 32.8 g/dL (32.0-36.0) Red Cell Distribution Width 12.7 % (11.0-15.5) Platelet Count 136 K/uL (130-400) Mean Platelet Volume 11.4 fL (7.5-10.5) H Immature Granulocyte % (Auto) 2.0 % (0-1) H Neutrophils (%) (Auto) 70.5 % (40.0-77.0) Lymphocytes (%) (Auto) 19.7 % (21.0-51.0) L Monocytes (%) (Auto) 5.9 % (3.0-13.0) Eosinophils (%) (Auto) 1.4 % (0.0-8.0) Basophils (%) (Auto) 0.5 % (0.0-5.0) Neutrophils # (Auto) 5.4 K/uL (1.8-7.7) Lymphocytes # (Auto) 1.5 K/uL (1.0-4.8) Monocytes # (Auto) 0.5 K/uL (0.1-1.0) Eosinophils # (Auto) 0.11 K/uL (0.00-0.70) Basophils # (Auto) 0.04 K/uL (0.00-0.20) Absolute Immature Granulocyte (auto 0.15 K/uL (0-1) Nucleated Red Blood Cells 0.0 % (0.0-0.19) Sodium Level 144 mmol/L (136-145) Potassium Level 4.0 mmol/L (3.5-5.1) Chloride Level 106 mmol/L (101-111) Carbon Dioxide Level 31 mmol/L (21-32) Blood Urea Nitrogen 34 mg/dL (7-18) H Creatinine 1.3 mg/dL (0.5-1.0) H Glomerular Filtration Rate Calc 40 mL/min (>90) Random Glucose 155 mg/dL (70-105) H Lactic Acid Level 1.4 mmol/L (0.8-2.5) Total Calcium 9.4 mg/dL (8.5-10.1) Troponin I High Sensitivity 16 ng/L (4-50) Lipase 48 U/L (16-77) CT Scan Comment: [facility] [address] [place] [address] IMAGING REPORT Signed PATIENT: ENDY MCCLAIN MR#: [id number] : 1935 SEX: F AGE: 89 LOCATION: [facility] ORDER 11 STATUS: REG ER REPORT#: [id number] SERVICE 10 REASON: lower abdominal pain ORDERING PHYSICIAN: DONNA NAIDU MD PROCEDURE: ABD PEL WO - CT ABDOMEN/PELVIS W/O CONTRAST CT ABDOMEN/PELVIS W/O CONTRAST INDICATION: lower abdominal pain TECHNIQUE: CT ABDOMEN/PELVIS W/O CONTRAST. Oral contrast was not given. Coronal and sagittal reformats were performed. CT was performed with one or more of the following dose reduction techniques: Automated exposure control, adjustment of the mA and/or kV according to the patient's size, or use of the iterative reconstruction technique. Comparison: 10/06/2023 FINDINGS: The noncontrast nature this study limits evaluation of abdominal viscera. Mild atelectatic changes are seen in the lung bases. Unremarkable liver parenchyma. Cholecystectomy changes are noted. The spleen, pancreas, and adrenal glands are within normal limits. No hydronephrosis. The urinary bladder is partially collapsed. Reproductive organs are grossly within normal limits for patient's age. No bowel obstruction identified. Appendix is not clearly visualized limiting evaluation. Correlate clinically. Atherosclerotic changes of the aorta with calcified plaques. Degenerative changes of the spine are seen. IMPRESSION: No acute CT findings. DICTATED BY: ZACHARY LUNSFORD MD DATE: 01/16/252125 ELECTRONICALLY SIGNED BY: ZACHARY LUNSFORD MD DATE: 01/16/252129 ED Course ED Course Orders Procedure Category Date Status Time Cbc With Differential LAB 01/16/25 Complete 20:36 Basic Metabolic Panel LAB 01/16/25 Complete 20:36 Lipase LAB 01/16/25 Complete 20:36 Ct Abdomen/Pelvis W/O CT 01/16/25 Taken Contrast 20:36 Pantoprazole 40mg Inj PHA 01/16/25 Complete (Protonix 40mg Inj 21:00 Urinalysis Profile LAB 01/16/25 Complete 20:36 Troponin I High LAB 01/16/25 Complete Sensitivity 20:36 Morphine 4mg Syg PHA 01/16/25 Complete (Morphine 4mg Syg) 21:00 Ct Abdomen/Pelvis W/O CT 01/16/25 Resulted Contrast 21:11 Lactic Acid LAB 01/16/25 Complete 21:49 Ceftriaxone 1g Vial PHA 01/16/25 Complete (Rocephine 1g Inj) 22:30 Current Medications Medications (Trade) Dose Ordered Sig/Carlee Route PRN Reason Start Time Stop Time Status Last Admin Dose Admin Ceftriaxone Sodium (ROCEphine 1G INJ) 1 gm ONCE ONCE IVPB 01/16/25 22:30 01/16/25 22:31 DC 01/16/25 22:26 Morphine Sulfate (morPHINE 4MG SYG) 4 mg ONCE ONCE IVP 01/16/25 21:00 01/16/25 21:01 DC 01/16/25 22:05 Pantoprazole Sodium (PROTonix 40MG INJ) 40 mg ONCE ONCE IVP 01/16/25 21:00 01/16/25 21:01 DC 01/16/25 22:05 Vital Signs Date Time Temp Pulse Resp B/P (MAP) Pulse Ox O2 Delivery O2 Flow Rate FiO2 01/16/25 22:40 98.6 62 18 126/49 99 Room Air* 0 21 01/16/25 22:06 98.4 64 17 129/42 98 Room Air* 0 01/16/25 20:31 98.4 68 18 151/59 99 Room Air 0 08:30 The patient was assessed in Emergency Department triage room 1. She is seated in a wheelchair and does not exhibit any signs of cardiopulmonary distress. Her vital signs are as follows: blood pressure 151/59, pulse rate 68, and oxygen saturation at 98% on room air. The patient primarily speaks [place], and her daughter assisted with the translation. We will proceed with laboratory tests and radiological examinations to exclude any potential infectious processes or determine the cause of her current clinical symptoms. Following the results of these tests, we will evaluate whether the patient necessitates emergency treatment or inpatient admission. Continuous monitoring of the patient will be maintained. 10:20 The laboratory tests and CT scan revealed no notable abnormalities. Results were discussed with the patient. The patient is diagnosed with a mild urinary tract infection, indicated by the presence of leukocyte esterase. We will initiate a prescription for nitrofurantoin 100 mg to be taken twice daily for a duration of five days. Currently, we do not believe that the patient necessitates any emergency intervention or inpatient care. The patient is in a stable medical condition and is suitable for discharge to home. Medical Decision Making [facility] Differential diagnosis: Urinary tract infection, lower abdominal pain, chronic anemia Rationale: Tests considered and ordered secondary to shared decision making include: Previous outside records reviewed: Old ER visits. Risk of complication and/or morbidity or mortality of patient management: None Medications-Per medication reconciliation Need for hospitalization: Patient does not meet criteria for hospitalization. Need for emergency major/minor surgery: No There are no social concerns with this patient. Prescription drug management Prescriptions will include symptomatic care Patient's prior external medical records from other ER visits were reviewed by me as indicated. Prior testing and results from previous visits were reviewed. Prior tests were taken into account with medical decision making and resource utilization, independent historian/historians were used to obtain complete medical history. I independently interpreted the test that were performed, results were reviewed by me and considered findings on radiology if ordered. , Rationale: Tests considered and ordered secondary to shared decision making include: Previous outside records reviewed: Old ER visits. Risk of complication and/or morbidity or mortality of patient management: None Medications-Per medication reconciliation Need for hospitalization: Patient does not meet criteria for hospitalization. Need for emergency major/minor surgery: No There are no social concerns with this patient. Prescription drug management Prescriptions will include symptomatic care Patient's prior external medical records from other ER visits were reviewed by me as indicated. Prior testing and results from previous visits were reviewed. Prior tests were taken into account with medical decision making and resource utilization, independent historian/historians were used to obtain complete medical history. I independently interpreted the test that were performed, results were reviewed by me and considered findings on radiology if ordered. DX & DISP Disposition: Discharge Departure Impression: Primary Impression: Urinary tract infection Additional Impressions: Lower abdominal pain, Chronic anemia Condition: Stable Scripts Nitrofurantoin/Nitrofuran Mac (Macrobid) 100 Mg Cap 100 MG PO BID for 5 Days, #10 CAP Prov: DONNA NAIDU MD 01/16/25 Additional Instructions: Start taking nitrofurantoin 100 mg b.i.d. for 5 days for mild UTI. Finish the full course of antibiotics, even if you feel better. Take laxatives over the counter like Colace, Miralax as needed for constipation. Drink lots of water to dilute urine and flush out bacteria. Avoid carbonated and caffeinated drinks. Urination Urinate often and Try to empty your bladder each time. Consider drinking cranberry juice or taking D-mannose, a sugar that may help fight infection. Visit the nearest emergency department or call 911 if you experience Fever, chills, nausea, or vomiting that worsens or appears for the first time Referrals: EMA CARPENTER MD (PCP) I have reviewed the case, and I agree with, Diagnosis and Plan I have examined patient, & reviewed all documents, & agreed W/ the Diagnosis, and Plan I performed a substantive portion of the visit. I have reviewed and personally made and approve the management plan that is documented in the notes by myself with BENIGNO/resident. I acknowledged full responsibility for the patient's [facility] plan. DONNA NAIDU MD Jan 16, 2025 20:41 NEELAM MCKEON DO Jan 17, 2025 00:57
[2025-01-16 21:03] LABS: APPEARANCE,URINE CLEAR (CLEAR); BILIRUBIN,URINE NEGATIVE (NEGATIVE); COLOR,URINE YELLOW (YELLOW); GLUCOSE, URINE (UA) NEGATIVE (NEGATIVE); KETONES,URINE 5 mg/dL (NEGATIVE); LEUKOCYTE ESTERASE ,URINE SMALL Leu/uL (NEGATIVE); NITRATE,URINE NEGATIVE (NEGATIVE); OCCULT BLOOD,URINE NEGATIVE (NEGATIVE); PROTEIN,URINE TRACE mg/dL (NEGATIVE); UROBILINOGEN,URINE 0.2 mg/dL (0.2-1.0)
[2025-01-16 21:06] LABS: ADD UA MICROSCOPIC NO
--- NOTE | 2025-01-16 21:30 | HMCIMG ---
CT ABDOMEN/PELVIS W/O CONTRAST INDICATION: lower abdominal pain TECHNIQUE: CT ABDOMEN/PELVIS W/O CONTRAST. Oral contrast was not given. Coronal and sagittal reformats were performed. CT was performed with one or more of the following dose reduction techniques: Automated exposure control, adjustment of the mA and/or kV according to the patient's size, or use of the iterative reconstruction technique. Comparison: 10/06/2023 FINDINGS: The noncontrast nature this study limits evaluation of abdominal viscera. Mild atelectatic changes are seen in the lung bases. Unremarkable liver parenchyma. Cholecystectomy changes are noted. The spleen, pancreas, and adrenal glands are within normal limits. No hydronephrosis. The urinary bladder is partially collapsed. Reproductive organs are grossly within normal limits for patient's age. No bowel obstruction identified. Appendix is not clearly visualized limiting evaluation. Correlate clinically. Atherosclerotic changes of the aorta with calcified plaques. Degenerative changes of the spine are seen. IMPRESSION: No acute CT findings.
[2025-01-16 21:51] LABS: BASOPHILS # (AUTO) 0.04 K/uL (0.00-0.20); BASOPHILS % (AUTO) 0.5 % (0.0-5.0); EOSINOPHILS # (AUTO) 0.11 K/uL (0.00-0.70); EOSINOPHILS % (AUTO) 1.4 % (0.0-8.0); HEMATOCRIT 33.5 % (36-48); IMMATURE GRANULOCYTE ABSOLUTE 0.15 K/uL (0-1); LYMPHOCYTES # (AUTO) 1.5 K/uL (1.0-4.8); LYMPHOCYTES % (AUTO) 19.7 % (21.0-51.0); MEAN CORPUSCULAR HEMOGLOBIN 31.3 pg (27.0-33.0); MEAN CORPUSCULAR HGB CONC 32.8 g/dL (32.0-36.0); MEAN CORPUSCULAR VOLUME 95.2 fL (79-99); MONOCYTES # (AUTO) 0.5 K/uL (0.1-1.0); MONOCYTES % (AUTO) 5.9 % (3.0-13.0); NEUTROPHILS # (AUTO) 5.4 K/uL (1.8-7.7); NEUTROPHILS % (AUTO) 70.5 % (40.0-77.0); PLATELET COUNT (AUTO) 136 K/uL (130-400); RED BLOOD CELL COUNT(AUTO) 3.52 MIL/uL (4.00-5.50); RED CELL DISTRIBUTION WIDTH 12.7 % (11.0-15.5); WHITE BLOOD COUNT (AUTO) 7.6 K/uL (4.8-10.8)
[2025-01-16 22:02] LABS: CREATININE 1.3 mg/dL (0.5-1.0)
[2025-01-16] MEDS: PANTOPrazole 40 MG/VIAL IVP ONE (22:05)
[2025-01-16] MEDS: morPHINE 4 MG SYG IVP ONE (22:05)
[2025-01-16] MEDS ORDERED: MACR100 PO (22:13)
[2025-01-16] MEDS: cefTRIAXone 1G VIAL IVPB ONE (22:26)
[2025-01-16 22:40] VITALS: BP 126/49; PULSE 62; RESP 18; TEMP 98.6; O2SAT 99
== END 2025-01-16 22:46 | disposition home or self-care (01) ==
LOC: EDH 20:14
DX: N39.0 Urinary tract infection, site not specified (principal); R10.32 Left lower quadrant pain; D64.9 Anemia, unspecified; E11.9 Type 2 diabetes mellitus without complications; F03.93 Unspecified dementia, unspecified severity, with mood disturbance; F32.A Depression, unspecified; I10 Essential (primary) hypertension; Z79.890 Hormone replacement therapy; Z90.49 Acquired absence of other specified parts of digestive tract; Z98.51 Tubal ligation status
CPT/HCPCS: 99285; 74176; 96374; 96375; 84484; 80048; 83690; 85025; 83605; 81003; 36415; J0696; J2270; J2470